=== PATIENT | female | born 1995 | race Caucasian/White ===

== ENCOUNTER 2021-02-19 20:18 | Emergency (ER) | payer BC ==
[~2021-02-19] VITALS: Ht 170.2 cm; Wt 59.0 kg
--- NOTE | 2021-02-19 20:31 | NUR ---
pt bibself c/o sob. pt aaox4 breathing evenly and unlabored. Pt states taht she is covid positive. Pt states that "it feels like a cramp when I breathe". Pt attached to monitor and pox. md at bedside. Pt given blanket and call light within reach
[2021-02-19] MEDS ORDERED: KETOROLAC TROMETHAMINE INJ 30 MG/ML VIAL ONE (20:50)
[2021-02-19] MEDS ORDERED: ALBU8.5H8 INH (20:52)
[2021-02-19] MEDS ORDERED: AZIT250T PO (20:52)
--- NOTE | 2021-02-19 20:58 | NUR ---
Patient discharged to home in stable condition. Written and verbal after care instructions given. Patient verbalizes understanding of instruction. IV removed. Catheter intact and site benign. Pressure and 4x4 applied to site. No bleeding noted. Pt ambulatory with a steady gait
[2021-02-19] MEDS ORDERED: KETOROLAC TROMETHAMINE INJ 30 MG/ML VIAL IV ONE (21:00)
[2021-02-19 21:04] VITALS: BP 126/85
== END 2021-02-19 20:58 | disposition home or self-care (01) ==
LOC: ER 20:18
DX: U07.1 COVID-19 (principal)
CPT/HCPCS: 96374; 99283; J1885